=== PATIENT | male | born 1975 | race Caucasian/White ===

== ENCOUNTER 2022-11-22 01:13 | Emergency (ER) | payer OTHER, BC ==
[2022-11-22] MEDS ORDERED: Take Home: Acetaminophen/Codeine 300 MG/30 MG, 5 Tab Pack PO ONE (02:16)
== END 2022-11-22 02:30 | disposition home or self-care (01) ==
LOC: VM.ED 01:13
DX: S01.21XA Laceration without foreign body of nose, initial encounter (principal); Y04.2XXA Assault by strike against or bumped into by another person, initial encounter
CPT/HCPCS: 70450; 70486; 99283; A9270-GY